=== PATIENT | female | born 1945 | race Caucasian/White ===

== ENCOUNTER 2017-07-26 09:03 | Day surgery (SDC) | payer MEDICARE, OTHER ==
--- NOTE | 2017-07-16 06:23 | HP ---
CC: Kimberley Chavez MD * ADMISSION HISTORY AND PHYSICAL: DATE OF ADMISSION: 07/26/17 ATTENDING SURGEON: Dary Green MD * (DICTATED BY ESVIN SWAIN) CHIEF COMPLAINT: Left breast lump. HISTORY OF PRESENT ILLNESS: This is a generally healthy 72-year-old female who had not noticed any changes in her breasts herself, but who only does intermittent self- exam and was found on breast exam by her PCP, Dr. Chavez, to have a new left breast lump. She had not noticed any changes in the breast, skin changes, dimpling, or nipple discharge. A diagnostic mammogram of the left breast was obtained on 04/26/17 and an ultrasound on the same day. Both studies were essentially normal. The patient was referred and seen by Dr. Green on 05/13/17. The remainder of her breast history is outlined in her chart record. She has not had any other prior breast biopsies. Dr. Green's exam revealed a small rubbery oval palpable nodule in the periareolar area at the 1 o'clock position approximately 2 mm from the nipple. It was described as semi-mobile. Dr. Green discussed options with the patient and a fine-needle aspiration was performed that day. Pathology revealed a minimally cellular biopsy with benign features. Dr. Green discussed with her the options of repeat biopsy versus observation versus lumpectomy. The patient understands the options, the risks, benefits, and alternatives and would like to proceed as scheduled with left breast lumpectomy. Also of note, the patient did use hormone replacement therapy for approximately 5 years following menopause in her 50s. Family history is negative for ovarian and breast cancer, but positive for colon cancer. PAST MEDICAL HISTORY: 1. Hypothyroidism (on replacement). 2. Thyroid nodules (previously evaluated). 3. Osteopenia. 4. Urinary urge incontinence. 5. Allergic rhinitis. 6. Depression. PAST SURGICAL HISTORY: Previous surgeries include: 1. Bilateral cataract surgery. 2. Appendectomy. 3. [place] teeth extraction. 4. Left index finger nerve repair. 5. Right knee arthroscopy with partial meniscectomy. No reported surgical or anesthesia problems. CURRENT MEDICATIONS: 1. Levothyroxine 137 mcg daily. 2. Myrbetriq 25 mg 2 tablets daily. 3. Fluoxetine 10 mg daily. 4. Loratadine 10 mg daily p.r.n. allergies. 5. Colace 100 mg daily. 6. Ibuprofen 200 mg 1 tablet p.r.n. 7. Vitamin B12, 1000 mcg once daily. 8. Estrace vaginal cream p.r.n. 9. She takes a calcium supplement 2 tablets q.a.m. 10. Vitamin D 5000 IU once daily. DRUG ALLERGIES: KEFLEX (GI side effects only). FAMILY HISTORY: Negative for anesthesia problems, bleeding or clotting disorders. SOCIAL HISTORY: The patient is remarried after being . 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 She has never been a smoker to any extent and she drinks on an average 2 to 3 glasses of wine per week. She denies other recreational drug use. REVIEW OF SYSTEMS: General: She is experiencing some upper respiratory symptoms with congestion, nonproductive cough, and symptoms consistent with sinusitis. She states that she has been successfully treated with azithromycin in the past and therefore, prescription is sent in electronically for same. If she is not improving, she will contact Dr. Chavez's office for further workup and treatment. Her surgery was originally scheduled for 07/19/17, but was pushed back because of recurrent URI symptoms. No other acute illnesses or constitutional symptoms. She denies fevers, chills, or significant weight loss. HEENT: No additions to above. Cardiovascular: No history of chest pain , palpitations, NC, angina or heart murmur. Respiratory: No history of asthma. She does have some allergic rhinitis symptoms at times. URI as noted above. GI: No problems reported. She underwent routine screening colonoscopy 1 week ago with removal of benign polyps and recommended 5-year followup. : Urinary urge incontinence with improvement on Myrbetriq. No history of kidney stones. FUMIGATOR AND STERILIZER: As above per HPI. She no longer has Pap smears performed, though did have a pelvic exam at last visit with her PCP. No problems reported. Endocrine: No diabetes. She is on thyroid replacement and has been followed for thyroid nodules. Previously biopsied with benign results. Remainder of review of systems is negative. PHYSICAL EXAMINATION GENERAL: Well-nourished, well-developed female, in no acute distress. VITAL SIGNS: Height 63.5 inches, weight 145 pounds. Temperature 97.7, blood pressure 132/66, pulse 60. HEENT: Pupils are equal and round, reactive. EOMs intact. No conjunctival pallor. Oropharynx: Teeth in good repair. No intraoral lesions. NECK: No lymphadenopathy. It is difficult for me to appreciate discrete nodules of the thyroid. No tenderness. LUNGS: Clear to auscultation. No rales or wheezes. HEART: Regular rate and rhythm. No murmur appreciated. BREASTS: Not reexamined (see above per Dr. Green's exam who also found that the right breast was without any discrete nodules). ABDOMEN: Soft, nontender to palpation. No palpable masses or organomegaly. GENITALIA: Not done. RECTAL: Not done. BACK: No spinous process or CVA tenderness. EXTREMITIES: No edema. NEUROLOGICAL: Grossly intact. SKIN: Warm and dry. No suspicious rashes or lesions noted. IMPRESSION: Left breast lump. PLAN: Left breast lumpectomy. ESVIN SWAIN [id number]/[facility] #: [id number] [facility] MEDICAL CENTERDerrek
[~2017-07-26 09:03] MED LIST: Buffered Lidocaine 0.9% SYRIN* 5 ML/SYR SYRINGE INTRADERM ONE; Dexamethasone IV* 4 MG/ML 1 ML (4 MG) IV SLOW PU ONE; Famotidine TAB* 20 MG PO ONE
[2017-07-26] MEDS ORDERED: Dexamethasone IV* 4 MG/ML 1 ML (4 MG) ONE (09:09)
[2017-07-26] MEDS ORDERED: Famotidine TAB* 20 MG ONE (09:09)
[2017-07-26] MEDS ORDERED: Bupivacaine 0.5% PF 10 ML VIAL INJ ONE (11:08)
[2017-07-26] MEDS ORDERED: Lidocaine 1% INJ* 10 MG/ML 30 ML SDV ONE (11:09)
[2017-07-26] MEDS ORDERED: Midazolam* 1 MG/ML 5 ML VIAL (5 MG) ONE (11:18)
[2017-07-26] MEDS ORDERED: fentaNYL* 50 MCG/ML 2 ML VIAL (100 MCG VIAL) ONE (11:19)
[2017-07-26] MEDS ORDERED: Lidocaine 2% PF * 5 ML VIAL ONE (11:27)
[2017-07-26] MEDS ORDERED: Propofol* 10 MG/ML 20 ML BTL IV PUSH ONE (11:27)
[2017-07-26] MEDS ORDERED: Naloxone* 0.4 MG/ML 1 ML VIAL IV PRN (11:39)
[2017-07-26] MEDS ORDERED: DiMENhydriNATE IV* 50 MG/ML VIAL IV PUSH PRN (11:39)
[2017-07-26] MEDS ORDERED: HYDROcodone/ACETAMIN 5-325 MG* 1 TAB PO PRN ×2 (11:39→12:37)
[2017-07-26] MEDS ORDERED: oxyCODONE TAB* 5 MG TAB PO PRN (11:39)
[2017-07-26] MEDS ORDERED: Acetaminophen TAB* 325 MG PO PRN (11:39)
[2017-07-26] MEDS ORDERED: fentaNYL* 50 MCG/ML 2 ML VIAL (100 MCG VIAL) IV PRN (11:39)
[2017-07-26] MEDS ORDERED: Ondansetron INJ* 2 MG/ML VIAL ONE (11:53)
--- NOTE | 2017-07-26 12:23 | BRIEFOPN ---
Brief Operative Note - Surgery Procedures: Procedures CLOSED ENDOSCOPIC BIOPSY OF LARGE INTESTINE (11/07/98) COLONOSCOPY (06/09/12) EXCIS KNEE SEMILUN CARTL (07/30/12) KNEE ARTHROSCOPY (07/30/12) OTHER NEUROPLASTY (05/05/93) 07/26/17 Op NOte (dictated) Pre-op dx: left breast lump Post-op dx: same Procedure: excision left breast lump Surgeon: Peter Asst: none Anesth: local-MAC EBL: 2 cc Complications: none Abx: not indicated SCDs on during surgery Pt. tolerated procedure well and was transferred to in a stable condition. CLFoster
[2017-07-26 12:43] VITALS: BP 141/73
--- NOTE | 2017-07-26 17:15 | OP ---
CC: [facility]; Dr. Kimberley Chavez OPERATIVE REPORT: DATE OF OPERATION: 07/26/17 DATE OF : 41 SURGEON: Dary Green MD PATIENT ACCESS REGISTRAR: There was no marketing support assistant for this case. PRE-OP DIAGNOSIS: Left breast lump. POST-OP DIAGNOSIS: Left breast lump. OPERATIVE PROCEDURE: Excision of left breast lump. INDICATIONS: Ms. Ferrer is a 72-year-old woman with a recently identified lump in the left breast that did not have any mammographic correlation. Plans were made therefore for surgical intervention. DESCRIPTION OF PROCEDURE: She was brought to the operating room, placed on the OR table in a supine position, and given IV sedation. The left breast was prepped and draped in the usual sterile fashion . After infiltrating with local anesthetic, a curvilinear and circumareolar incision was made and pink bcutaneous tissue was divided with electrocautery. The mass was grasped with an Allis clamp and exci sed from the breast using electrocautery dissection. It was handed off as a specimen. Hemostasis was assured with electrocautery and then closure was accomplished using 3-0 Vicryl in the subcutaneous l waqas and the skin was closed with 4-0 Prolene in a subcuticular fashion. Prior to closing, some yohana tional local was instilled into the wound. Steri-Strips and a dry sterile dressing were applied. Al l sponge and instrument counts were correct. The patient tolerated the procedure well and was transf erred to Recovery in a stable condition. [id number]/[facility] #: [id number]
== END 2017-07-26 12:55 | disposition home or self-care (01) ==
LOC: OR 09:03
PROVIDERS: ATTEND Surgery
DX: N63.21 Unspecified lump in the left breast, upper outer quadrant (principal); E03.9 Hypothyroidism, unspecified; E04.1 Nontoxic single thyroid nodule; M85.80 Other specified disorders of bone density and structure, unspecified site; F32.9 Major depressive disorder, single episode, unspecified; J45.909 Unspecified asthma, uncomplicated
CPT/HCPCS: 88307; A9270-GY; J1100; J2250; J2405; J2704; J3010